=== PATIENT | male | born 1985 | race Two or more races ===

== ENCOUNTER 2023-04-11 17:13 | Emergency (ER) | payer SELFPAY ==
[~2023-04-11] VITALS: Ht 177.8 cm; Wt 77.1 kg
[2023-04-11 17:39] VITALS: BP 138/88; TEMP 98.4; O2SAT 100
== END 2023-04-11 20:08 | disposition left against medical advice (07) ==
LOC: ER 17:19
DX: M54.50 Low back pain, unspecified (principal); Z53.21 Procedure and treatment not carried out due to patient leaving prior to being seen by health care provider

== ENCOUNTER 2023-04-16 15:28 | Emergency (ER) | payer MEDICAID ==
[~2023-04-16] VITALS: Ht 177.8 cm; Wt 77.1 kg
[2023-04-16] MEDS ORDERED: LIDOCAINE 5% (PATCH) 1 EA PATCH TP SCH (16:00)
[2023-04-16] MEDS ORDERED: ACETAMINOPHEN 325 MG TABLET PO ONE (16:00)
[2023-04-16] MEDS ORDERED: LIDOCAINE 5% (PATCH) 1 EA PATCH TP ONE (16:00)
[2023-04-16] MEDS ORDERED: DIAZEPAM 5 MG TABLET PO ONE (16:00)
[2023-04-16] MEDS ORDERED: KETOROLAC TROMETHAMINE INJ 30 MG/ML VIAL IM ONE (16:00)
[2023-04-16] MEDS ORDERED: KETOROLAC TROMETHAMINE INJ 30 MG/ML VIAL ONE (16:01)
[2023-04-16] MEDS ORDERED: ACETAMINOPHEN 325 MG TABLET ONE (16:01)
[2023-04-16] MEDS ORDERED: DIAZEPAM 5 MG TABLET ONE (16:01)
[2023-04-16 16:19] VITALS: BP 128/78; TEMP 98; O2SAT 100
== END 2023-04-16 17:54 | disposition left against medical advice (07) ==
LOC: ER 15:29
DX: M54.50 Low back pain, unspecified (principal); Z60.2 Problems related to living alone; W11.XXXA Fall on and from ladder, initial encounter; Y93.89 Activity, other specified; Y92.89 Other specified places as the place of occurrence of the external cause; Y99.8 Other external cause status
CPT/HCPCS: 99285; 72131; 96372; J1885